=== PATIENT | male | born 1990 | race Caucasian/White ===

== ENCOUNTER 2020-08-01 17:13 | Emergency (ER) | payer MEDICARE, SELFPAY ==
--- NOTE | 2020-08-01 17:14 | ED.URI ---
HPI - URI/Sore Throat General Chief Complaint: Upper Respiratory Infection Stated Complaint: scratchy Throat and congestion Time Seen by Provider: 08/01/20 17:26 Source: patient and RN notes reviewed Mode of arrival: ambulatory Limitations: no limitations History of Present Illness HPI Narrative: 40-year-old male presents with 2-day history of rhinorrhea, nasal congestion, sore throat, scratchy throat. 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 Denies any intervention. Reports history of seasonal allergies. He denies body aches, chills, fever, loss of sense of taste or smell. MD elicited complaint: nasal congestion Related Data Allergies Allergy/AdvReac Type Severity Reaction Status Date / Time No Known Allergies Allergy Unverified 09/12/18 14:28 Review of Systems Review of Systems: Narrative: CONSTITUTIONAL: Denies malaise, chills, sweats, or fever. EYES: Denies visual changes, redness, or discharge. ENT: Reports rhinorrhea, congestion, and sore throat. Denies sinus pain, otalgia CARDIOVASCULAR: Denies chest pain, palpitations, or edema. RESPIRATORY: Denies cough or dyspnea. GASTROINTESTINAL: Denies abdominal pain, nausea, vomiting, diarrhea SKIN: Denies rash or itching. MUSCULOSKELETAL: Denies myalgia. NEUROLOGIC: Denies headache. All systems reviewed & are unremarkable except as noted in HPI and below PMFSH Social History Social History Gender identity (if verbalized by the patient): Male Comments At time of signature, agree with nursing past medical, surgical, social and family history. There is no relevant family history pertinent to the presenting complaint Exam Narrative: Exam Narrative: GENERAL: Well-appearing, well-nourished, and in no acute distress. HEAD: Normocephalic EYES: PERRLA, conjunctivae clear ENT: Nares clear, turbinates erythematous, clear discharge. Mucous membranes moist. TM pearly atkins with sharp light reflex bilaterally; no tragal tenderness. Oropharynx erythematous without lesions. Tonsils not enlarged and without exudate, no drooling, no hoarseness, no trismus, uvula midline. NECK: Supple. No lymphadenopathy CHEST: Clear to auscultation, breath sounds equal. No wheezing, rhonchi, rales, or stridor. No respiratory distress, speaks in full sentences. HEART: Regular rate and rhythm. No murmur heard. SKIN: Warm, dry, no rash. NEURO: Alert and oriented x3. PSYCH: Normal mood and affect Course Course Emergency Course: Patient is aware of diagnosis, understands and agrees to treatment plan. Anticipatory guidance given. Patient agrees to follow-up as directed and is aware of reasons to seek care at the emergency department. Portions of this record may have been created with voice recognition software Vital Signs Vital signs: Vital Signs Temperature 97.6 F 08/01/20 17:25 Pulse Rate 85 08/01/20 17:25 Respiratory Rate 16 08/01/20 17:25 Blood Pressure 127/78 08/01/20 17:25 Pulse Oximetry 99 08/01/20 17:25 Temperature 97.6 F 08/01/20 17:25 Pulse Rate 85 08/01/20 17:25 Respiratory Rate 16 08/01/20 17:25 Blood Pressure 127/78 08/01/20 17:25 Pulse Oximetry 99 08/01/20 17:25 Reviewed. MDM - URI/Sore Throat MDM Narrative Medical decision making narrative: Differential diagnosis considered: Perez virus, strep pharyngitis, allergic rhinitis, upper respiratory tract infection, sinusitis, rhinosinusitis, nasopharyngitis. viral pharyngitis, otitis media, otitis externa, pneumonia, bronchitis, viral cough syndrome, viral syndrome, and influenza. Exam findings show no acute concerns or changes; patient is non-toxic appearing and is in no distress. Patient is appropriate for outpatient treatment and follow-up. Lab Data Attestation: I reviewed the patient's lab results. Critical Care Time Critical Care Time Critical Care Time: No Discharge Plan Discharge Clinical Impression: Upper respiratory infection Qualifiers: URI type: unspecif
[2020-08-01 17:25] VITALS: BP 127/78; PULSE 85; RESP 16; TEMP 36.4; O2SAT 99
[2020-08-02 16:16] LABS: SARS-CoV-2 RNA PCR Negative
== END 2020-08-01 17:56 | disposition home or self-care (01) ==
PROVIDERS: Emergency Provider Nurse Practitioner
DX: R09.89 Other specified symptoms and signs involving the circulatory and respiratory systems (principal); J06.9 Acute upper respiratory infection, unspecified; Z20.822 Contact with and (suspected) exposure to COVID-19
CPT/HCPCS: 87081; 87426; 87880; 99213; C9803; G0463; U0003; U0005

== ENCOUNTER 2020-12-25 18:03 | Emergency (ER) | payer MEDICARE, SELFPAY ==
--- NOTE | ~2020-12-25 | XR_ITS ---
EXAMINATION: XR foot RT min 3V DATE: 12/25/2020 18:39 INDICATION: Right foot injury and pain. TECHNIQUE: 4 views of right foot were obtained. COMPARISON: None. FINDINGS: Bone alignment is normal. No fracture. 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 IMPRESSION: 1. No fracture. Reviewed, dictated and finalized at location A. IMPRESSION: 1. No fracture.
[2020-12-25 18:15] VITALS: BP 145/94; PULSE 100; RESP 16; TEMP 36.7; O2SAT 100
--- NOTE | 2020-12-25 19:01 | ED.LOWEXIN ---
HPI - Extremity Injury (Lower) General Chief Complaint: Extremity Injury, Lower Stated Complaint: Right Foot Injury Time Seen by Provider: 12/25/20 18:24 Source: patient and RN notes reviewed Mode of arrival: ambulatory Limitations: no limitations History of Present Illness HPI Narrative: Patient presents today complaining of an injury to his right foot. 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 Denies numbness or tingling. Currently rates his pain 9/10 and has tried ice, but no medication for symptoms prior to arrival. He has been using crutches to ambulate. Pain increases with weightbearing. Related Data Allergies Allergy/AdvReac Type Severity Reaction Status Date / Time No Known Allergies Allergy Unverified 09/12/18 14:28 Review of Systems Review of Systems: CONSTITUTIONAL: Denies body aches, fever, chills, or sweats. EYES: Denies visual changes, redness, or discharge. ENT: Denies rhinorrhea, congestion, sore throat, or otalgia. CARDIOVASCULAR: Denies chest pain, palpitations, or edema. RESPIRATORY: Denies cough or dyspnea. GASTROINTESTINAL: Denies abdominal pain, nausea, vomiting, or diarrhea. GENITOURINARY: Denies dysuria or hematuria. SKIN: Denies rash, itching, or wounds. MUSCULOSKELETAL: Denies back pain, or myalgia.+ Right foot injury NEUROLOGIC: Denies headache, numbness, tingling, or weakness. PSYCH: Denies depression or anxiety. PMFSH Social History Social History Gender identity (if verbalized by the patient): Male Comments At time of signature, I have reviewed and agree with nursing past medical, surgical, social and family history unless otherwise noted. Please see nursing chart for further information. There is no relevant family history pertinent to the presenting complaint Exam Narrative: GENERAL: Well-appearing, well-nourished, and in no acute distress. HEAD: Normocephalic, atraumatic. EYES: EOMI. No redness or drainage. Conjunctivae normal. ENT: Mucous membranes pink and moist. NECK: Normal AROM. Supple.. CHEST: No respiratory distress. EXTREMITIES: Right foot: Mild edema about the dorsum of the foot. Mild ecchymosis to the base of the toes. Distal sensation intact. Capillary refill normal. Pedal pulse normal. Pain increases with dorsiflexion of the toes. SKIN: Warm, dry, no rash. Capillary refill normal. NEURO: No focal deficits. Alert and oriented x3. Gait steady. PSYCH: Normal affect. No signs of depression or anxiety. Course Vital Signs Vital signs: Vital Signs Temperature 98.0 F 12/25/20 18:15 Pulse Rate 100 12/25/20 18:15 Respiratory Rate 16 12/25/20 18:15 Blood Pressure 145/94 H 12/25/20 18:15 Pulse Oximetry 100 12/25/20 18:15 Temperature 98.0 F 12/25/20 18:15 Pulse Rate 100 12/25/20 18:15 Respiratory Rate 16 12/25/20 18:15 Blood Pressure 145/94 H 12/25/20 18:15 Pulse Oximetry 100 12/25/20 18:15 Reviewed. Pt has been instructed to follow up with his PCP regarding his elevated blood pressure today. MDM - Extremity Injury (Lower) Differential Diagnosis Differential diagnosis: Likely fracture of toe and other (Foot fracture, foot contusion, foot sprain) Imaging Data Radiologist's impression: ITS Impressions Foot X-Ray 12/25/20 18:42 IMPRESSION: 1. No fracture. Critical Care Time Critical Care Time Critical Care Time: No Discharge Plan Discharge Clinical Impression: Contusion of foot, left Qualifiers: Encounter type: initial encounter Qualified Code(s): S90.32XA - Contusion of left foot, initial encounter Patient Disposition: Home, Self-Care Condition: Stable Instructions: Contusion in Adults (ED) Additional Instructions: Your x-ray is negative for fracture today. Elevate and ice the foot. Take an anti-inflammatory such as Aleve or ibuprofen for pain. Use the cr
== END 2020-12-25 19:11 | disposition home or self-care (01) ==
PROVIDERS: Emergency Provider Nurse Practitioner
DX: S90.31XA Contusion of right foot, initial encounter (principal); W19.XXXA Unspecified fall, initial encounter; Y93.72 Activity, wrestling
CPT/HCPCS: 73630; 99213; G0463

== ENCOUNTER 2022-04-04 09:47 | Emergency (ER) | payer MEDICARE, SELFPAY ==
--- NOTE | 2022-04-04 09:52 | ED.GENADULT ---
HPI - General Adult General Chief complaint: Nausea/Vomiting/Diarrhea Stated complaint: fatigued Time Seen by Provider: 04/04/22 09:52 Source: patient and RN notes reviewed History of Present Illness HPI narrative: patient is a 31-year-old male who presents to the Urgent Care with complaints of fatigue and 1 episode of vomiting last night. Patient states his main concern is needing a work note. 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 Patient also reports a cough for 1 month. Patient is not taking anything [id number] for his symptoms. Currently denies any nausea, diarrhea or abdominal pain. Patient denies a fever. No other acute complaints. No acute distress by patient for plan of care. Some parts of this dictation were generated by voice recognition software and may contain typographical and/or grammatical inaccuracies. Related Data Home Medications Medication Instructions Recorded Confirmed No Home Medications 04/04/22 04/04/22 Allergies Allergy/AdvReac Type Severity Reaction Status Date / Time No Known Allergies Allergy Unverified 04/04/22 10:06 Review of Systems Review of Systems: CONSTITUTIONAL: Denies fever, chills, or sweats. reports fatigue EYES: Denies visual changes, redness, or discharge. ENT: Denies rhinorrhea, congestion, sore throat, or otalgia. CARDIOVASCULAR: Denies chest pain, palpitations, or edema. RESPIRATORY: reports of a intermittent cough for 1 month GASTROINTESTINAL: Reports 1 episode of vomiting GENITOURINARY: Denies dysuria or hematuria. SKIN: Denies rash or itching. MUSCULOSKELETAL: Denies back pain, joint pain, or myalgia. NEUROLOGIC: Denies headache, numbness, or weakness. All other systems reviewed are negative, except as documented in HPI. PMFSH Social History Social History Gender identity (if verbalized by the patient): Male Comments At the time of my signature, I reviewed and agree with the nursing past medical, surgical, social, and family history. There is no relevant family history pertinent to the patient complaint. Exam Narrative: GENERAL: This is a well-nourished, well-developed patient. Poor hygiene HEAD: normocephalic, atraumatic. EYES: PERRL. Sclera clear/white. Vision is grossly intact. EARS: External ears normal, auditory canals clear and without drainage, TMs normal without perforation. Hearing grossly intact. NOSE: External nose normal with no obvious nasal discharge, nares without redness, no rhinorrhea. THROAT: Mucous membranes moist, posterior pharynx clear. moderate postnasal drainage NECK: Neck supple, non-tender without lymphadenopathy, masses or thyromegaly. CARDIOVASCULAR: Regular rate and rhythm RESPIRATORY: Clear to auscultation. Breath sounds equal bilaterally. No wheezes, rales, or rhonchi. GASTROINTESTINAL: Abdomen soft, non-tender, nondistended. Bowel sounds are active.No guarding. SKIN: warm, intact with no suspicious lesions or rash, good texture and turgor. NEURO: awake, alert, and oriented to person, place and time. There were no obvious focal neurologic abnormalities. EXTREMITIES: No clubbing, cyanosis, or edema. Course Course Level of Care: Express Care Visit Vital Signs Vital signs: Vital Signs Temperature 98.3 F 04/04/22 09:54 Pulse Rate 96 04/04/22 09:54 Respiratory Rate 16 04/04/22 09:54 Blood Pressure 133/81 04/04/22 09:54 Pulse Oximetry 99 04/04/22 09:54 Oxygen Delivery Room Air 04/04/22 09:54 Temperature 98.3 F 04/04/22 09:54 Pulse Rate 96 04/04/22 09:54 Respiratory Rate 16 04/04/22 09:54 Blood Pressure 133/81 04/04/22 09:54 Pulse Oximetry 99 04/04/22 09:54 Oxygen Delivery Room Air 04/04/22 09:54 reviewed Medical Decision Making MDM Narrative Medical decision making narrative: advised patient to use Pepto-Bismol [id number] for symptom relief. If he develops any exacerbation of symptoms
[2022-04-04 09:54] VITALS: BP 133/81; PULSE 96; RESP 16; TEMP 36.8; O2SAT 99
== END 2022-04-04 10:15 | disposition home or self-care (01) ==
PROVIDERS: Emergency Provider Nurse Practitioner Family; PCP Emergency Medicine
DX: K52.9 Noninfective gastroenteritis and colitis, unspecified (principal)
CPT/HCPCS: 99211; G0463

== ENCOUNTER 2022-07-23 17:47 | Emergency (ER) | payer MEDICARE, MEDICAID, SELFPAY ==
[2022-07-23 17:56] VITALS: BP 136/82; PULSE 86; RESP 18; TEMP 36.5; O2SAT 98
--- NOTE | 2022-07-23 18:49 | ED.GENADULT ---
HPI - General Adult General Chief complaint: Upper Respiratory Infection Stated complaint: Congestion/stuffy nose Source: patient Mode of arrival: ambulatory Limitations: no limitations History of Present Illness HPI narrative: PATIENT PRESENTS FOR EVALUATION OF SICK SYMPTOMS FOR LAST 2 DAYS. SYMPTOMS INCLUDE SINUS CONGESTION, YELLOW NASAL DRAINAGE, NONPRODUCTIVE COUGH. DENIES ANY FEVER, CHILLS, NAUSEA, VOMITING, OTALGIA. NO RECENT SICK CONTACTS TO HIS KNOWLEDGE. HE SMOKES 1/2 PPD. HE HAS NOT TAKEN ANY MEDICATION TO ASSIST WITH HIS SYMPTOMS. Related Data Allergies Allergy/AdvReac Type Severity Reaction Status Date / Time No Known Allergies Allergy Unverified 07/23/22 17:57 Review of Systems Review of Systems: CONSTITUTIONAL: DENIES FEVER, CHILLS, OR SWEATS. EYES: DENIES VISUAL CHANGES, REDNESS, OR DISCHARGE. ENT:REPORTS SINUS CONGESTION AND YELLOW NASAL DRAINAGE. CARDIOVASCULAR: DENIES CHEST PAIN, PALPITATIONS, OR EDEMA. RESPIRATORY: REPORTS COUGH. DENIES SHORTNESS OF BREATH. GASTROINTESTINAL: DENIES ABDOMINAL PAIN, NAUSEA, VOMITING, OR DIARRHEA. GENITOURINARY: DENIES DYSURIA OR HEMATURIA. SKIN: DENIES RASH OR ITCHING. MUSCULOSKELETAL: DENIES BACK PAIN, JOINT PAIN, OR MYALGIA. NEUROLOGIC: DENIES HEADACHE, NUMBNESS, DIZZINESS, OR WEAKNESS. PSYCHIATRIC: DENIES ANXIETY OR DEPRESSION. [facility] Past Medical History Medical History No pertinent past medical history Surgical History Surgical History No pertinent past surgical history Family History Family History Mother Family history non-contributory Social History Social History Smoking packs per day: 0.5 Smoking cigarettes per day: 10.0 Smoking status: Current every day smoker Living arrangements: with family Gender identity (if verbalized by the patient): Male Spiritual care concerns: No Exam Narrative: GENERAL: Patient has an extremely foul odor present. Well-appearing, well-nourished, and in no acute distress. HEAD: Normocephalic, atraumatic. EYES: PERRLA and EOMI. ENT: Nares clear, no rhinorrhea or epistaxis. Mucous membranes moist. Oropharynx without tonsillar hypertrophy exudate or other lesions. Bilateral TMs pearly atkins nonbulging NECK: Supple. No adenopathy or masses. No carotid bruits or JVD CHEST: Clear to auscultation. No respiratory distress. No wheezes rales or rhonchi HEART: Regular rate and rhythm. No murmur heard. Normal peripheral pulses. ABDOMEN: Soft, nontender, nondistended, normal active bowel sounds. EXTREMITIES: Normal range of motion. No edema. SKIN: Warm, dry, no rash. NEURO: No focal deficits. Alert and oriented x3. PSYCH: Normal mood and affect. Course Course Emergency Course: This is a 32-year-old male who presented for evaluation of sinus congestion, drainage and cough for last 2 days. Exam is consistent with viral URI. Start Mucinex DM. He would like a note to excuse him from work. Increase hydration. Advised on smoking cessation. Follow up with primary provider. Go to the ER for worsening symptoms. Pt in agreement with plan of care. Level of Care: Express Care Visit Vital Signs Vital signs: Vital Signs Temperature 36.5 C 07/23/22 17:56 Pulse Rate 86 07/23/22 17:56 Respiratory Rate 18 07/23/22 17:56 Blood Pressure 136/82 07/23/22 17:56 Pulse Oximetry 98 07/23/22 17:56 Oxygen Delivery Room Air 07/23/22 17:56 Temperature 36.5 C 07/23/22 17:56 Pulse Rate 86 07/23/22 17:56 Respiratory Rate 18 07/23/22 17:56 Blood Pressure 136/82 07/23/22 17:56 Pulse Oximetry 98 07/23/22 17:56 Oxygen Delivery Room Air 07/23/22 17:56 Medical Decision Making Vital Signs Vital Signs: Vital Signs Temperature 36.5 C
== END 2022-07-23 18:54 | disposition home or self-care (01) ==
PROVIDERS: Emergency Provider Nurse Practitioner
DX: J06.9 Acute upper respiratory infection, unspecified (principal); F17.210 Nicotine dependence, cigarettes, uncomplicated
CPT/HCPCS: 99213; G0463